=== PATIENT | male | born 1960 ===

== ENCOUNTER 2021-12-08 00:38 | Emergency (ER) | payer MEDICAID ==
[~2021-12-08] VITALS: Ht 167.6 cm; Wt 119.0 kg
[2021-12-08 03:46] LABS: Urine Bacteria NONE SEEN /hpf (None Seen); Urine Blood 3+ /uL (Negative); Urine WBC 106 /hpf (0 - 3)
[2021-12-08 03:59] LABS: Urine Specific Gravity 1.025 (1.001-1.035)
[2021-12-08 05:38] VITALS: BP 121/52
== END 2021-12-08 07:32 | disposition left against medical advice (07) ==
LOC: ER 00:38
DX: R30.0 Dysuria (principal); Z53.21 Procedure and treatment not carried out due to patient leaving prior to being seen by health care provider
CPT/HCPCS: 81001